=== PATIENT | female | born 1950 ===

== ENCOUNTER 2019-01-22 06:58 | Day surgery (SDC) | payer OTHER ==
[~2019-01-22 06:58] MED LIST: FENOFIBRATE160 MG PO; FOLGARD TABLET1 EACH PO; LEVOTHYROXINE75 MCG PO; METFORMIN HCL500 MG; MIRTAZAPINE15 M1 PO
== END 2019-01-22 16:20 | disposition home or self-care (01) ==
LOC: CIR.AMB 06:58
DX: N95.0 Postmenopausal bleeding (principal)